=== PATIENT | female | born 1980 | race Asian ===

== ENCOUNTER 2022-06-21 17:16 | Inpatient (IN) | payer OTHER ==
[2022-06-21] MEDS ORDERED: VANCOMYCIN 1 GM in D5W (PRE-DOCKED) 1,000 MG/250 ML IVPB ONE (22:42)
[2022-06-21 23:18] LABS: BASO % 0.8 % (0-2.0); EOS % 2.2 % (0-4.5); HEMATOCRIT 41.4 % (32.4-45.2); HEMOGLOBIN 14.2 GM/dL (10.7-15.3); LYMPH % 23.2 % (8-40); MCH 29.6 pg (25.7-33.7); MCHC 34.2 g/dl (32.0-36.0); MEAN CELL VOLUME 86.4 fl (80-96); MEAN PLT VOLUME 7.7 fl (7.5-11.1); MONO % 4.5 % (3.8-10.2); NEUT % 69.3 % (42.8-82.8); PLATELET COUNT 434 10^3/uL (134-434); RBC 4.79 M/mm3 (3.60-5.2); WHITE BLOOD COUNT 9.6 K/mm3 (4.0-10.0)
[2022-06-21 23:39] LABS: ALBUMIN 3.4 g/dl (3.4-5.0); CALCIUM 9.2 mg/dL (8.5-10.1)
[2022-06-21 23:43] LABS: CREATININE 0.8 mg/dL (0.55-1.3)
[2022-06-21 23:45] LABS: BILIRUBIN,TOTAL 0.2 mg/dL (0.2-1); TOT PROT 7.6 g/dl (6.4-8.2)
[2022-06-22] MEDS ORDERED: CLINDAMYCIN 600MG PREMIX IVPB 600 MG/50 ML BAG IVPB ONE ×2 (01:10→01:37)
[2022-06-22] MEDS ORDERED: SODIUM CHLORIDE 1,000 ML IV SCH (01:30)
[2022-06-22] MEDS ORDERED: ceFAZolin SODIUM 1 GM VIAL ONE (01:37)
[2022-06-22] MEDS: CEFAZOLIN 1 GM in DEXTROSE 5%-WATER - 50 ML IVPB SCH ×3 (01:50→17:32)
[2022-06-22 04:25] VITALS: BMI 21.3
[2022-06-22 10:13] LABS: BASO % 0.5 % (0-2.0); EOS % 1.7 % (0-4.5); HEMATOCRIT 37.8 % (32.4-45.2); HEMOGLOBIN 12.9 GM/dL (10.7-15.3); MCH 29.6 pg (25.7-33.7); MCHC 34.2 g/dl (32.0-36.0); MEAN CELL VOLUME 86.7 fl (80-96); MEAN PLT VOLUME 7.5 fl (7.5-11.1); NEUT % 74.8 % (42.8-82.8); PLATELET COUNT 404 10^3/uL (134-434); RBC 4.36 M/mm3 (3.60-5.2); RDW 12.6 % (11.6-15.6); WHITE BLOOD COUNT 7.5 K/mm3 (4.0-10.0)
[2022-06-22 10:33] LABS: CALCIUM 9.1 mg/dL (8.5-10.1)
[2022-06-22 10:34] LABS: BLOOD UREA NITROGEN 11.6 mg/dL (7-18)
[2022-06-22 10:36] LABS: CREATININE 0.9 mg/dL (0.55-1.3)
[2022-06-22 10:37] LABS: URINE APPEARANCE CLEAR; URINE BILIRUBIN NEGATIVE (NEGATIVE); URINE COLOR YELLOW; URINE GLUCOSE (UA) NEGATIVE (NEGATIVE); URINE KETONE TRACE (NEGATIVE)
[2022-06-22 10:38] LABS: URINE LEUK ESTERASE NEGATIVE (NEGATIVE); URINE NITRITE NEGATIVE (NEGATIVE); URINE PROTEIN NEGATIVE (NEGATIVE); URINE UROBILINOGEN 0.2 mg/dL (0.2-1.0)
[2022-06-22 10:39] LABS: BILIRUBIN,TOTAL 0.3 mg/dL (0.2-1); TOT PROT 6.7 g/dl (6.4-8.2)
[2022-06-22] MEDS: ENOXAPARIN NA (PORCINE) 40 MG/0.4 ML DISP.SYRIN SQ SCH ×2 (10:47→10:57)
[2022-06-22] MEDS ORDERED: ACETAMINOPHEN 325 MG TABLET (FP) PO PRN (15:01)
[2022-06-22 18:56] VITALS: RESP 18
[2022-06-23] MEDS: CEFAZOLIN 1 GM in DEXTROSE 5%-WATER - 50 ML IVPB SCH ×2 (02:15→10:35)
[2022-06-23 06:36] VITALS: BP 112/66
[2022-06-23] MEDS: ENOXAPARIN NA (PORCINE) 40 MG/0.4 ML DISP.SYRIN SQ SCH (10:34)
[2022-06-23 11:36] VITALS: PULSE 93; TEMP 98
== END 2022-06-23 13:07 | disposition home or self-care (01) | DRG 863 ==
LOC: JER 17:16 → JERBED 22:47 → J5S 06-22 03:50
PROVIDERS: ADMIT Internal Medicine; ATTEND Internal Medicine
DX: T81.49XA Infection following a procedure, other surgical site, initial encounter (principal); N61.0 Mastitis without abscess; Y83.8 Other surgical procedures as the cause of abnormal reaction of the patient, or of later complication, without mention of misadventure at the time of the procedure
CPT/HCPCS: 36415; 71046-TC-FY; 71260-TC; 80053; 81003; 84703; 85025; 87040; 87086; 93005; 93010; 99285-25; C9803-CS; G0378; Q9967; U0003; U0005